=== PATIENT | female | born 2000 ===

== ENCOUNTER 2018-09-15 18:15 | Emergency (ER) | payer OTHER ==
[2018-09-15] MEDS ORDERED: Lactated Ringer's 1,000 ML IV STA (19:51)
--- NOTE | 2018-09-15 21:36 | ED PDOC ---
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 Patient reports pain started suddenly on the right side, but denies nausea, diarrhea, or constipation. She states she has urinary frequency but no hematuria, dysuria or vaginal bleeding. Patient reports vaginal discharge has been clear since start of . She has mild lightheadedness and headaches that started after started. Patient has not started care but she has an appointment with Dr. Sue and has started taking vitamins PMD: Dr. Gaytan Abnormal Vaginal Bleeding: No : 2 Para: 1 Miscarriage: 1 (terminated) Past Medical History Reviewed: Historical Data, Nursing Documentation, Vital Signs Vital Signs: Last Vital Signs Temp 98.2 F 09/15/18 18:44 Pulse 112 H 09/15/18 18:44 Resp 20 09/15/18 18:44 BP 151/79 H 09/15/18 18:44 Pulse Ox 100 09/15/18 18:44 - Medical History PMH: Asthma - Surgical History Surgical History: No Surg Hx - Family History Family History: States: Other Other Family History: asthma - Social History Current smoker - smoking cessation education provided: No Ex-Smoker (has not smoked in the last 12 months): No - Immunization History Hx Tetanus Toxoid Vaccination: No Hx Influenza Vaccination: No Hx Pneumococcal Vaccination: No - Home Medications Home Medications: Ambulatory Orders Medication Instructions Recorded Norgestimate-Ethinyl Estradiol 1 each PO DAILY 11/01/16 [Ortho Tri-Cyclen 28 Tablet] Ibuprofen [Motrin] 600 mg PO Q6 PRN #20 tab 11/02/16 - Allergies Allergies/Adverse Reactions: Allergies Allergy/AdvReac Type Severity Reaction Status Date / Time peach Allergy RASH Verified 09/15/18 18:44 peanut Allergy RASH Verified 09/15/18 18:44 pear Allergy RASH Verified 09/15/18 18:44 soy Allergy RASH Verified 09/15/18 18:44 walnut Allergy RASH Verified 09/15/18 18:44 Review of Systems ROS Statement: Except As Marked, All Systems Reviewed And Found Negative Gastrointestinal: Negative for: Nausea, Diarrhea, Constipation Genitourinary Female: Positive for: Frequency, Vaginal Discharge (clear), Pelvic Pain. Negative for: Dysuria, Hematuria, Vaginal Bleeding Physical Exam - Reviewed Nursing Documentation Reviewed: Yes Vital Signs Reviewed: Yes - Physical Exam Appears: Positive for: Non-toxic, In Acute Distress (mild painful) Head Exam: Positive for: ATRAUMATIC, NORMOCEPHALIC Skin: Positive for: Warm, Dry Eye Exam: Positive for: EOMI, PERRL Neck: Positive for: Painless ROM, Trachea Midline Respiratory: Positive for: Normal Breath Sounds. Negative for: Respiratory Distress Gastrointestinal/Abdominal: Positive for: Tenderness (mild suprapubic tenderness to palpation and tenderness to palpation to midline of pelvis), Other (negative McBurney's point). Negative for: Mass, Guarding Back: Positive for: Normal Inspection. Negative for: L CVA Tenderness, R CVA Tenderness Extremity: Negative for: Pedal Edema Neurologic/Psych: Positive for: Alert, Oriented - Laboratory Results Result Diagrams: 09/15/18 21:36 - ECG O2 Sat by Pulse Oximetry: 100 (RA) Pulse Ox Interpretation: Normal Medical Decision Making Medical Decision Making: Time: 1930 Impression: Pelvic pain and Differential diagnoses include but are not limited to: UTI, round ligament pain, ectopic , and ovarian cyst. Initial Plan: --Beta-hcg --Urine preg --Urine dip --CBC with differentials --Lactated ringers --Tylenol 975 mg PO --OB transvaginal US CLINICAL HISTORY: Pain TECHNIQUE: Realtime transvaginal sonographic images were obtained in multiple projections. COMMENTS: The uterus is anteverted and measures 6.4 x 4.8 x 5.6 cm. A single intrauterine is identified with sac-like intrauterine structure noted compatible with a gestational sac. The mean gestational sac diameter is 0.9 cm. Possible tiny pole but no heart beat is identified. A yolk sac is identified ( 3 mm.). The mean gestational sac diameter is 0.92 cm. which is out of range. FDLMP is 07/31/2018 with expected gestational age of 6 weeks 4 days Right ovary measures 2.1 x 1.8 x 2.3 cm. with normal echo texture and Doppler flow detected. Left ovary measures 4.7 x 3.0 x 4.4 cm. with Doppler flow detected and there is an intraovarian cyst measuring 2.5 x 2.4 x 2.3 cm. with no internal blood flow. There is no free fluid. Cervix measures 3.1 cm. in length and the internal os is closed. IMPRESSION: Findings compatible with early as above. Possible tiny pole but no heart beat identified. Yolk sac is seen. Follow up study in 7-10 days is recommended to document progression and confirm living or lack thereof . Left ovarian cyst. Thank you for your kind referral of this patient. Electronically signed on Sep 15, 2018 10:14:21 PM EST by: Peterson Grayson D.O., Certified by [facility], Diagnostic Radiology - Scribe Attestation: Documented by Naheed Baez, acting as a scribe for Nishi Daniels MD Provider Scribe Attestation: All medical record entries made by the Scribe were at my direction and personally dictated by me. I have reviewed the chart and agree that the record accurately reflects my personal performance of the history, physical exam, medical decision making, and the department course for this patient. I have also personally directed, reviewed, and agree with the discharge instructions and disposition. Disposition - Clinical Impression Clinical Impression: Abdominal pain in , Ovarian cyst Counseled Patient/Family Regarding: Studies Performed, Diagnosis, Need For Followup - Disposition Referrals: Marcelino Sue MD [Staff Provider] - Disposition: Routine/Home Disposition Time: 23:17 Condition: STABLE Instructions: Ovarian Cyst (DC), - The Second Month Forms: [facility] ED School/Work Excuse
[2018-09-15 21:40] LABS: BASO # 0.1 K/uL (0.0-0.2); BASO % 0.7 % (0.0-2.0); EOS # 0.4 K/uL (0.0-0.7); EOS % 5.3 % (0.0-4.0); HEMOGLOBIN 11.8 g/dL (12.0-16.0); LYMPH # 2.6 K/uL (1.0-4.3); LYMPH % 33.4 % (20.0-40.0); MEAN CELL VOLUME 84.5 fl (81.0-99.0); MEAN CORPUSCULAR HEMOGLOBIN 28.7 pg (27.0-31.0); MEAN CORPUSCULAR HGB CONC 33.9 g/dL (33.0-37.0); MEAN PLATELET VOLUME 9.3 fl (7.2-11.7); MONO # 0.5 K/uL (0.0-0.8); MONO % 6.5 % (0.0-10.0); NEUT # 4.2 K/uL (1.8-7.0); NEUT % 54.1 % (50.0-75.0); NRBC % 0.1 % (0.0-0.0); RBC 4.11 Mil/uL (3.80-5.20); RED CELL DISTRIBUTION WIDTH 13.4 % (11.5-14.5); WHITE BLOOD COUNT 7.8 K/uL (4.8-10.8)
[2018-09-16 06:00] VITALS: BP 124/66; PULSE 72; RESP 16; TEMP 97.9
--- NOTE | 2018-09-16 10:16 | US ---
Date of service: 09/15/2018 PROCEDURE: OB Pelvic Ultrasound HISTORY: preg pelvic pain r/o ectopic COMPARISON: None available. FINDINGS: UTERUS: Single Live intrauterine gestation. Yolk sac is visualized. pole is not definitely identified Gestational sac diameter measures 0.9 cm too small to characterize gestational age. Date of delivery (Ultrasound estimated) : Summer-gestational hemorrhage: None. Uterus measures 6.4 x 4.8 x 5.6 cm. No mass CERVIX: long and closed. No cervical abnormality seen. RIGHT OVARY: Measures 2.1 x 1.8 x 2.3 cm. No mass. Normal flow. LEFT OVARY: Measures 4.7 x 3.0 x 4.4 cm. No mass. Normal flow. There is a 2.5 x 2.4 x 2.3 cm corpus luteum cyst. FREE FLUID: None. OTHER FINDINGS: None. IMPRESSION: Single intrauterine gestational sac too small to accurately assess gestational age. Yolk sac is visualized. pole is not definitely identified on the current examination. Clinical and imaging follow-up is recommended to confirm viability. A preliminary report was provided by [employer].
[2018-09-18 17:19] VITALS: O2SAT 100
== END 2018-09-15 23:30 | disposition home or self-care (01) ==
LOC: H.ER 18:15
DX: O26.91 Pregnancy related conditions, unspecified, first trimester (principal); N83.202 Unspecified ovarian cyst, left side; J45.909 Unspecified asthma, uncomplicated; Z87.891 Personal history of nicotine dependence
CPT/HCPCS: 76817; 81025; 84702; 85025; 99284; J7120